=== PATIENT | male | born 1940 | race Caucasian/White ===

== ENCOUNTER → 2018-10-24 | Outpatient (CLI) | payer OTHER ==
[~2018-10-24] VITALS: Ht 165.1 cm; Wt 127.0 kg
[~2018-10-24] MED LIST: ALLOPURINOL 10100 M1 PO; ASPIRIN EC325 M1 PO; COUMADIN 2.5MG2.5 M1 PO; COUMADIN 5 MG TA5 M1 PO; DAILY VITAMIN1 EAC5 PO; FISH OIL 1,001000 M1 PO; FISH OIL 1,2001 EAC4 PO; GLUCOSAMINE HC500 MG PO; HYDROCODON-ACE1 EAC5 PO; HYTRIN 5 M5 MG/1 CAP PO; IBUPROFEN200 M1 PO; LISINOPRIL-HCT1 EAC1 PO; MEDROL DOSPAK21 TA1 PO; METAMUCIL PAC1 UDPKT PO; NEURONTIN 300300 M1 PO; PAIN RELIEF500 MG PO; PRILOSEC20 MG PO; SORINE 80 MG TA80 M1 PO; VITAMIN C500 M1 PO; VITAMIN D35000 UNI1 PO; VITAMIN E400 UNI2 PO; ZANAFLEX2 MG PO; ZOCOR 10 MG TAB10 MG PO
--- NOTE | ~2018-10-24 | HPC ---
[facility] [address] [place] [address] PAIN MANAGEMENT CONSULTATION Name: GISELA TANG Room #: REG [facility] Aidee#: [id number] Admission: 10/24/18 Attend Phys: José Luis Preciado MD Discharge: Date of : 38 Report #: [id number] THIS REPORT FOR: //name// CC: Marko Preciado DATE OF SERVICE: 10/24/2018 CHIEF COMPLAINT: Low back pain with pain radiating down in my right leg. HISTORY OF PRESENT ILLNESS: The patient is a 78-year-old gentleman, who has been referred to the pain clinic by his primary physician for evaluation. The patient states that he swims. He has had bilateral hip replacements. He states that he was in the [facility] pool about a week ago. He noticed increased back and leg pain after that visit. The pain was quite severe. He states that he was taking ibuprofen to help with the pain. He describes the pain as tremendous. He has had difficulty standing because of it. He does not feel that his hips have been displaced. He rates his pain as an 8/10 at this juncture. PAST MEDICAL HISTORY: He has hypertension, stomach problems, hiatal hernia, joint disease, osteoarthritis, hyperlipidemia, benign prostatic hypertrophy, hearing loss, history of right bundle branch block, gout, idiopathic; and chronic atrial fibrillation. PAST SURGICAL HISTORY: He has left and right hip replacements in 2009 and 2011, right and left cataract removals, index finger cyst removed, ganglion type; esophageal dilation in 2003, tonsils and adenoids. CURRENT MEDICATIONS: Methylprednisolone pack, tizanidine 2 mg, Coumadin 2.5 mg, 5 mg; fish oil 1000 mg, vitamin D3 5000 units, calcium, vitamin C 500 mg, sotalol 80 mg b.i.d., simvastatin, Zocor 10 mg, lisinopril/hydrochlorothiazide 20/12.5, allopurinol 100 mg b.i.d., Hytrin 5 mg, multivitamin, and glucosamine 500 mg, 1.5 mg daily. ALLERGIES: No known drug allergies. OCCUPATION: The patient is retired. He has not worked for 14 years. REVIEW OF SYSTEMS: Generally in good health, fever, night sweats, fatigue, hearing loss, sore throat, voice change, heart trouble, shortness of breath when lying flat, frequent urination, awakes to urinate, numbness and tingling sensation, nervousness, depression, insomnia, and bleeding tendency. PAIN CLINIC ASSESSMENT AND PQRS: 1. History of osteoarthritis. The patient has had multiple joint replacements including his hips bilaterally. History [place] [address] PAIN MANAGEMENT CONSULTATION Name: GISELA TANG [facility] [id number] Admission: 10/24/18 Attend Phys: José Luis Preciado MD Discharge: Date of : 38 Report #: [id number] has not been treated for rheumatoid arthritis. 2. Pain intensity is 8/10. 3. Fall risk. The patient has not fallen in the last 3 months. 4. Blood thinner. The patient is on Coumadin for atrial fibrillation. 5. Hypertension. The patient has being treated for hypertension. 6. Opioids greater than 6 weeks. The patient is not on an opioid regimen. 7. Risk assessment tool, low for opioid use. 8. Functional assessment tool, 70/70. 9. Recreational drug use. The patient denies use of recreational drugs. 10. Tobacco: The patient is a former smoker, is not smoking at this juncture. 11. Alcohol: The patient denies frequent use of alcoholic beverages. PHYSICAL EXAMINATION: GENERAL: The patient is a well-developed, somewhat obese white male. He appears stated age. He is alert and oriented x 3. Affect is appropriate. Speech is fluent. Height is 5 feet 5 inches, weight is 280 pounds, and BMI is 46.6. VITAL SIGNS: Blood pressure is 138/87, pulse is 90, respiratory rate is 16, and room air saturation is 97%. HEENT: Normocephalic, atraumatic. Extraocular eye muscles intact. Sclerae nonicteric. Mucous membranes are moist. NECK: Without JVD or adenopathy. Upper extremity muscle strength is judged to be 5-/5 for the major muscle groups in the upper extremity. HEART: Regular rate/history of atrial fibrillation. LUNGS: Distant heart tones given the patient's body habitus. ABDOMEN: Protuberant. Bowel sounds present. EXTREMITIES: Lower extremity, the patient has pain and discomfort radiating down into the posterior portion of his right and left leg. Most problematic in the L5-S1 dermatomal distribution involving the right leg. The patient has numbness and weakness. He complains of bitterly of pain and discomfort. He continue to rubs his right leg during the interview. He has difficulty standing and putting weight on his right leg because of the pain and discomfort, which becomes more intense with prolonged standing. The patient is in a wheelchair. His 2 brothers are present. LABORATORY DATA: No new laboratory values are available at the time of our interview. IMPRESSION: 1. Lumbar radiculopathy in the L5-S1 dermatomal distribution involving the right leg. 2. Hypertension. 3. Stomach problems. 4. Hiatal hernia. 5. Joint disease. 6. Osteoarthritis. [address] [place] [address] PAIN MANAGEMENT CONSULTATION Name: GISELA TANG Room #: REG [facility]#: [id number] Admission: 10/24/18 Attend Phys: José Luis Preciado MD Discharge: Date of : 38 Report #: [id number] 7. Hyperlipidemia. 8. Benign prostatic hypertrophy. 9. Hearing loss. 10. History of right bundle branch block. 11. Gout, idiopathic. 12. Chronic atrial fibrillation. RECOMMENDATIONS: We have discussed treatment options with the patient. At this juncture, we had a discussion with him and his brothers regarding the reason the patient cannot take nonsteroidal anti-inflammatory medications in conjunction with anticoagulation medication such as Coumadin. We explained that the platelets were important. Use of these medications can cause bleeding. The patient feels that he "has some medication to help control the pain." He has had hydrocodone type medications in the distant past. We explained that epidural steroid injections can be helpful in certain instances when the patients are having pain and discomfort because of pressure on the nerve. He has bilateral hip replacements. We explained to him that MRIs may not be as beneficial secondary to the metal that has in his hips. May consider a CT in the future if needed. May consider x-ray of the hip area. The patient will stop his Coumadin medication after he talks with his shoemaking cutter/primary care physician whoever is writing his anticoagulation medication. He will stop this medication. He will undergo an INR prior to an injection. At that time, we will proceed with an epidural steroid injection in the L5-S1 dermatomal distribution to help with the pain that is radiating down in his leg with numbness, weakness, tenderness, and sensation changes in this affected lower extremity. The patient has been given a script for hydrocodone 10/325 one p.o. q.4-6 hours p.r.n. He has also been given a script for gabapentin. He will take 300 mg initially. We would then try to increase his use of this medication to a higher level as he is able to tolerate it. We would like to thank you for letting us to participate in his care. We hope he continues to improve. By: [id number] José Luis Preciado MD /XU
[2018-10-24 13:15] VITALS: BP 138/87
== END ==
LOC: PAIN 10:46
DX: M19.90 Unspecified osteoarthritis, unspecified site (principal); M06.9 Rheumatoid arthritis, unspecified; I10 Essential (primary) hypertension; F11.21 Opioid dependence, in remission; Z96.643 Presence of artificial hip joint, bilateral; Z91.81 History of falling; Z87.891 Personal history of nicotine dependence